=== PATIENT | male | born 1970 | race Caucasian/White ===

== ENCOUNTER 2018-02-10 14:41 | Emergency (ER) | payer SELFPAY ==
[2018-02-10] MEDS ORDERED: ATIVAN IV ONE (15:16)
--- NOTE | 2018-02-10 15:19 | Emergency Department Report ---
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 He reports recently consuming cocaine, and unknown drug called "Jell-O", and alcohol. Since then he feels paranoid, but not homicidal or suicidal, feels like he is having insects crawling his skin, describes occipital head discomfort , body discomfort, and chest pain. The patient indicates no radiation of symptoms and cannot describe exacerbating or relieving factors. -: Gradual Location: head, chest, back, left, right, upper extremity, lower extremity Severity scale (0 -10): 4 Quality: other Consistency: other Improves with: other Worsens with: other Associated Symptoms: chest pain, headaches, loss of appetite, malaise, weakness. denies: confusion, diaphoresis, fever/chills, rash, seizure, shortness of breath, syncope - Related Data Allergies Allergy/AdvReac Type Severity Reaction Status Date / Time No Known Allergies Allergy Unverified 02/10/18 16:13 ED Review of Systems ROS: Stated complaint: NAUSEA/VOMITING Other details as noted in HPI Comment: Unobtainable due to pts medical conditions Constitutional: malaise. denies: fever Cardiovascular: chest pain Neurological: weakness Psychiatric: denies: homicidal thoughts, suicidal thoughts ED Past Medical Hx - Social History Smoking Status: Current Every Day Smoker Substance Use Type: Alcohol, Cocaine ED Physical Exam - General Limitations: Language Barrier General appearance: alert, anxious - Head Head exam: Present: atraumatic, normocephalic - Eye Eye exam: Present: normal appearance, PERRL, EOMI, other (visual acuity intact to finger counting, color perception, reading at a close distance). Absent: nystagmus - ENT ENT exam: Present: normal exam, normal orophraynx, mucous membranes moist, TM's normal bilaterally, normal external ear exam, other (there is no mastoid tenderness. There is no hemotympanum) - Neck Neck exam: Present: normal inspection, full ROM. Absent: tenderness, meningismus - Respiratory Respiratory exam: Present: normal lung sounds bilaterally. Absent: respiratory distress, wheezes, rales, rhonchi, stridor, chest wall tenderness - Cardiovascular Cardiovascular Exam: Present: normal rhythm, tachycardia, normal heart sounds. Absent: bradycardia, irregular rhythm, systolic murmur, diastolic murmur, rubs, gallop - GI/Abdominal GI/Abdominal exam: Present: soft. Absent: distended, tenderness, guarding, rebound, rigid, pulsatile mass - Rectal Rectal exam: Present: deferred - Extremities Exam Extremities exam: Present: normal inspection, full ROM, normal capillary refill , other (2+ pulses noted in the bilateral upper, lower extremities. Compartments soft. No long bony tenderness. The pelvis is stable.). Absent: tenderness, pedal edema, joint swelling, calf tenderness - Back Exam Back exam: Present: normal inspection, full ROM. Absent: tenderness, CVA tenderness (R), paraspinal tenderness, vertebral tenderness - Neurological Exam Neurological exam: Present: alert, CN II-XII intact, other (Extraocular movements intact. Tongue midline. No facial droop. Facial sensation intact to light touch in the V1, V2, V3 distribution bilaterally. 5 and 5 strength in 4 extremities.. Sensation is intact to light touch in 4 extremities.). Absent : motor sensory deficit - Psychiatric Psychiatric exam: Present: anxious. Absent: homicidal ideation, suicidal ideation - Skin Skin exam: Present: warm, dry, intact, normal color. Absent: rash ED Course Vital Signs 02/10/18 02/10/18 02/10/18 15:03 15:06 15:13 Temperature 97.7 F 97.7 F Pulse Rate 102 H 105 H 105 H Respiratory 16 18 18 Rate Blood Pressure 175/110 175/110 Blood Pressure 175/110 [Right] O2 Sat by Pulse 100 98 98 Oximetry 02/10/18 02/10/18 02/10/18 15:15 16:15 16:30 Temperature Pulse Rate 103 H 102 H 98 H Respiratory 24 14 Rate Blood Pressure 175/110 175/110 162/104 Blood Pressure [Right] O2 Sat by Pulse 100 95 Oximetry 02/10/18 02/10/18 02/10/18 16:45 16:56 16:57 Temperature Pulse Rate 98 H 105 H Respiratory 31 H 20 Rate Blood Pressure 162/104 Blood Pressure [Right] O2 Sat by Pulse 98 99 Oximetry - Reevaluation(s) Reevaluation #1: 02/10/18 19:07 Differential diagnosis, including but not limited to: Polypharmacy abuse, polysubstance abuse, costochondritis, pneumonia, myositis, rhabdomyolysis, acute coronary syndrome, vasospasm, intracranial hemorrhage Assessment and plan: 47-year-old male with multiple complaints after polysubstance abuse. He is afebrile, tachycardic and hypertensive, most likely secondary to underlying reported sympathomimetic ingestion. He does not require 1013 but appears to be somewhat impaired at this time. A noncontrast CT scan of the brain is negative, x-ray of the chest is negative, EKG #1 appears to be unremarkable with exception of high left ventricular voltage. EKG #2 is pending. Patient reported no DVT or pulmonary embolus risk factors. He is found to be hyperglycemic with some hyponatremia, most likely pseudohyponatremia. Also has anion gap noted, may likely be due to dehydration. His tachycardia has improved, he is given a banana bag and IV fluids. Reevaluation #2: 02/10/18 19:33 This provider is conversant in [place]. The patient reported that he felt improved. Troponin is negative 3. Hyperglycemia is improved and anion gap is also improved. He is able to walk with a steady gait and he appears to be sober at this point in time. He can follow up with an outpatient primary care doctor for his elevated blood pressure and hyperglycemia. The patient was instructed to discontinue polysubstance consumption. His elevated blood pressure is appreciated, this is most likely secondary to recent cocaine consumption. Please reference the [employer] clinical policy of hypertension that is not symptomatic. ED Medical Decision Making - Lab Data Result diagrams: 02/10/18 15:51 02/10/18 19:00 Critical care attestation.: If time is entered above; I have spent that time in minutes in the direct care of this critically ill patient, excluding procedure time. ED Disposition Clinical Impression: Chest pain, Polysubstance abuse, Hyperglycemia, Elevated blood pressure reading Disposition: DC-01 TO HOME OR SELFCARE Is pt being admited?: No Does the pt Need Aspirin: No Condition: Stable Instructions: Chest Pain (ED), Polysubstance Abuse (ED) Additional Instructions: The patient should discontinue cocaine consumption. It is not healthy. Patient should discontinue or decrease alcohol consumption. Please note that blood sugar and blood pressure of both elevated in the emergency room, and these should be followed up by a primary care doctor within the next 3-4 weeks. Long-term complications of hypertension and elevated blood pressure include stroke, heart attack, disability, paralysis, loss of quality of life. Follow- up with any of the listed primary care farm worker, or any of the listed cardiology groups for chest pain within the next 3-5 days. Return to the ER right away with new pain, worsened pain, migration of pain, projectile vomiting, change in mental status, confusion, inability to tolerate liquid feeds. El paciente debe suspender el consumo de cocana. Eso no es saludable. El paciente debe suspender o disminuir el consumo de alcohol. Tenga en cuenta que el nivel de azcar en la zulema y la presin arterial de ambos se elevan en la demarco de emergencias, y estos deben ser seguidos por un mdico de atencin primaria dentro de las prximas 3-4 semanas. Las complicaciones a gem plazo de la hipertensin y la presin arterial elevada incluyen apopleja, ataque cardaco, discapacidad, parlisis, prdida de la calidad de tmo. Walter un seguimiento con cualquiera de los apretones de atencin primaria enumerados, o cualquiera de los grupos de cardiologa enumerados para el dolor de pecho dentro de los prximos 3-5 brody. Regrese a la demarco de urgencias de inmediato con un nuevo dolor, dolor empeorado , migracin de dolor, vmitos con proyectiles, cambios en el estado mental, confusin, incapacidad para tolerar alimentaciones lquidas. Referrals: [facility] [Provider Group] - 3-5 Days [facility] [Provider Group] - 3-5 Days [facility] [Provider Group] - 3-5 Days [facility] [Outside] - 3-5 Days
--- NOTE | 2018-02-10 15:44 | Cat Scan Report ---
CT HEAD WITHOUT CONTRAST: HISTORY: Headaches, hallucinations. TECHNIQUE: Sequential 2.5mm CT images. COMPARISON: None. FINDINGS: Cerebral Parenchyma: Within normal limits. Cerebellum: Within normal limits. Brainstem: Within normal limits. Ventricles: Normal. Sella: Normal. Extra-axial spaces: Normal. Basal Cisterns: Normal. Intracranial Hemorrhage: None. Midline Shift: None. Calvarium: Normal. Sinuses: Moderate mucosal thickening is noted in the superior left maxillary sinus. The remaining sinuses are clear. Mastoid Air Cells: Normal. Visualized Orbits: Normal. IMPRESSION: Cranial CT scan within normal limits. Chronic left maxillary sinusitis.
[2018-02-10] MEDS ORDERED: VITAMIN B-1 100 MG, FOLVITE 1 MG, INFUVITE 10 ML in NACL 0.9% 1000 ML 1,000 ML IV ONE (16:00)
--- NOTE | 2018-02-10 16:01 | XRay Report ---
FINAL REPORT PROCEDURE: XR CHEST 1V AP TECHNIQUE: Chest radiograph anteroposterior view. CPT 30739 HISTORY: cp dyspnea COMPARISON: No prior studies are available for comparison. FINDINGS: The patient is in a mild reverse apical lordotic position. Heart size and pulmonary vasculature appear normal. There is a small amount of patchy alveolar density in both lung bases left side greater than right suggesting atelectasis versus subsegmental infiltrates. No dense consolidations or effusions are seen. No evidence of pneumothorax. No acute bony abnormalities are visualized IMPRESSION: Patchy density in the bases left side greater than right suggesting subsegmental areas of atelectasis versus infiltrate. No effusions are seen.
[2018-02-10 16:02] LABS: Mean Corpuscular HGB Conc 36 % (32-34); Mean Corpuscular Hemoglobin 35 pg (28-32); Mean Corpuscular Volume 95 fl (84-94); Platelet Count 159 K/mm3 (140-440); Red Blood Count 3.86 M/mm3 (3.65-5.03); Red Cell Distribution Width 15.2 % (13.2-15.2)
[2018-02-10 16:11] LABS: Hemoglobin 13.3 gm/dl (11.8-15.2)
[2018-02-10 16:12] LABS: Hematocrit 36.5 % (35.5-45.6)
[2018-02-10 16:22] LABS: Alanine Aminotransferase 122 units/L (7-56); Albumin 3.4 g/dL (3.9-5); BUN/Creatinine Ratio 22; Blood Urea Nitrogen 13 mg/dL (9-20); Calcium 8.9 mg/dL (8.4-10.2); Hemolysis Index 7
[2018-02-10] MEDS ORDERED: NACL 0.9% 1000 ML 2,000 ML IV ONE (17:26)
[2018-02-10] MEDS ORDERED: HumuLIN R IV ONE (18:13)
[2018-02-10 19:27] LABS: BUN/Creatinine Ratio 24; Blood Urea Nitrogen 12 mg/dL (9-20); Calcium 8.3 mg/dL (8.4-10.2); Hemolysis Index 12
[2018-02-10 19:48] VITALS: BP 178/99
== END 2018-02-10 19:46 | disposition home or self-care (01) ==
LOC: ED 14:41
DX: R07.89 Other chest pain (principal); R03.0 Elevated blood-pressure reading, without diagnosis of hypertension; F19.10 Other psychoactive substance abuse, uncomplicated; R73.9 Hyperglycemia, unspecified; F17.200 Nicotine dependence, unspecified, uncomplicated; F14.10 Cocaine abuse, uncomplicated
CPT/HCPCS: 36415; 70450; 71045; 80048; 80053; 82550; 83735; 84484; 85027; 93005; 93010; 96365; 96366; 96375; 99285; G0480; J2060; J3411; J7030; 80320; J1815